=== PATIENT | male | born 1945 | race Caucasian/White ===

== ENCOUNTER 2016-07-12 17:59 | Emergency (ER) | payer MEDICARE, OTHER ==
[2016-07-12 19:58] VITALS: TEMP 99.8; BMI 30.4
[2016-07-12 20:36] LABS: CA OXALATE OCC; LEUKOCYTES/URINE NEG (NEGATIVE); NITRITE/URINE NEG (NEGATIVE); RBC/URINE 40-50 (0-2); URINE OCCULT BLOOD 3+ (NEG/TRACE)
[2016-07-12] MEDS ORDERED: KETOROLAC TROMETHAMINE 10 MG TAB PO ONE (22:32)
--- NOTE | 2016-07-12 22:35 | EDPRACDOC ---
- General Information Chief Complaint: Abdominal Pain Stated Complaint: RT FLANK PAIN HX OF KIDNEY STONES Time Seen by Provider: 07/12/16 22:24 Mode Of Arrival: Car Home Medications: Home Medications Aspirin [Juliet Aspirin] 325 mg PO .ONCE 05/02/16 Ciprofloxacin HCl [Cipro] 500 mg PO BID #14 tab 05/02/16 Fenofibrate [Lofibra] 160 mg PO HS 05/02/16 Multivitamin [One-A-Day Essential] 1 each PO DAILY 05/02/16 Ondansetron HCl [Zofran] 4 mg PO Q6H PRN #12 tab 05/02/16 Oxycodone HCl [Roxicodone] 5 - 10 mg PO Q4 PRN #20 tablet 05/02/16 Pradaxa On Hold See Xomments 150 mg PO .BID ON HOLD 05/02/16 Simvastatin [Zocor] 40 mg PO HS 05/02/16 Tamsulosin HCl [Flomax] 0.4 mg PO QAM #7 cap 05/02/16 Triamterene/Hydrochlorothiazid [Triamterene-Hctz 37.5-25 mg Tb] 0.5 each PO DAILY 05/02/16 Ciprofloxacin HCl [Cipro] 500 mg PO BID #20 tab 07/13/16 Ketorolac Tromethamine [Toradol] 10 mg PO Q6H PRN #20 tab 07/13/16 Oxycodone HCl/Acetaminophen [Percocet 5-325 mg Tablet] 1 each PO Q4 #20 tablet 07/13/16 Allergies/Adverse Reactions: Allergies Allergy/AdvReac Type Severity Reaction Status Date / Time No Known Allergies Allergy Verified 05/02/16 09:32 - History of Present Illness Onset: 4 HOURS HPI: PATIENT PRESENTS C/O RIGHT FLANK PAIN FOR 2 DAYS WITH DYSURIA. HEMATURIA PRESENT. USUALLY TAKES PRADAXA BUT STOPPED THIS AM. NO FEVER. NO N/V LAST MEAL AT 1PM. HX OF KIDNEY STONES AND SEES DR. CARRERA Pain Location: Reports: Flank (RIGHT) Pain Context: Reports: Spontaneous Pain Severity: Moderate Pain Quality: Reports: Sharp, Stabbing Pain Radiation: Reports: No Radiation Adult Abdominal History: Denies: Abdominal Surgery Modifying Factors: improves with: Nothing Associated Signs & Symptoms: Reports: Nausea, Hematuria Oral Intake: Normal Urinary Output: Normal ED Past Medical History - History Reviewed Yes Nurses notes reviewed and agree except as marked Travel Outside of [place] in the Last 3 Months?: No - Patient Medical History Cardiac History: Reports: Atrial Fibrillation, Hypertension, Hypercholesterolemia GI/ History: Reports: Gastroesophageal Reflux Psychological History: Denies: Depression Systemic History: Reports: Cancer (skin) Surgical History: Reports: Tonsillectomy/Adnoidectomy - Social Medical History Smoking Status: Former smoker ETOH: None Substance Abuse: None Lives With: Family Lives In: Home EDM Review of Systems - Review of Systems ROS Negative Except as Marked: Yes All systems reviewed and were negative except as marked Constitutional: No Symptoms Reported. negative: Fever, Chills, Weakness, Fatigue, Loss of Appetite Eyes: No Symptoms Reported. negative: Redness, Blurred Vision, Double Vision, Discharge, Pain, Light Sensitive, Photophobia Ears: No Symptoms Reported. negative: Pain, Hearing Loss, Drainage, Ear Pulling Throat: No Symptoms Reported. negative: Pain, Swelling Nose: No Symptoms Reported. negative: Congestion, Bleeding, Discharge, Injection, Swelling, Deformity, Ecchymosis, Tender, Abrasion, Laceration Mouth: No Symptoms Reported. negative: Pain, Drooling Respiratory: No Symptoms Reported. negative: Cough, Brassy Cough, Barky Cough, Shortness of Breath, Wheezing, Hemoptysis Cardiovascular: No Symptoms Reported. negative: Chest Pain, Palpitations, Syncope, Edema, Orthopnea, PND, Skin Mottling, Cyanosis Gastrointestinal: No Symptoms Reported. negative: Pain, Constipation, Nausea, Vomiting, Diarrhea, Melena, Formula Intolerance Genitourinary: Bleeding, Dysuria. negative: Discharge, Frequency, Hematuria, , Testicular Pain Neurological: No Symptoms Reported. negative: Headache, Dizziness, Seizure, Numbness, Weakness, Speech Difficulty, Gait Difficulty Musculoskeletal: Back. negative: Arm, Ankle, Chestwall, Elbow, Forearm, Femur, Foot, Hand, Hip, Knee, Leg, Neck, Pelvis, Ribs, Shoulder, Wrist Integumentary: No Symptoms Reported. negative: Itching, Rash, Bruising, Wound Allergic/Immunologic: No Symptoms Reported. negative: Hives, Itching Hematologic: No Symptoms Reported. negative: Lymphadenopathy, Easy Bruising, Easy Bleeding Endocrine: No Symptoms Reported. negative: Weight Gain, Weight Loss Psychiatric: No Symptoms Reported. negative: Anxiety, Depression, Hallucinations, Insomnia, Suicidal - Physical Exam Constitutional: Alert (Awake), Distress (MILD) Oriented to: Time, Person, Place Last recorded Vital Signs: Last Vital Signs Temp 99.8 F 07/12/16 19:52 Pulse 72 07/12/16 23:50 Resp 18 07/12/16 23:50 BP 126/83 07/12/16 23:50 Pulse Ox 94 07/12/16 23:50 Oxygen Pulse Oxygen Saturation 94 O2 Device Room Air Oxygen Flow Rate Fraction of Inspired Oxygen ( FIO2) - HEENT Head: Normal ( normocephalic) Eye Exam: Normal (PERRL, EOMI, Sclera white) Oropharynx: Normal (Pharynx:Moist without exudate,Gums-no swelling) Tympanic Membrane: Normal ENT EAC: Normal TMJ: Normal Nose: No Symptoms Reported (septum midline) Neck: Normal (FROM, trachea at midline) - Respiratory/Cardiovascular Respiratory: Normal - CTA (BBS clear to auscultation without adventitious sounds ) Cardiovascular: Normal (RRR without murmur, gallop or rub) - GI Auscultation: Normal (NABS) Palpation: Normal (Soft,No rebound or guarding, non distended) Tenderness: Non tender Bonilla's Sign: Negative - Musculoskeletal Back: Normal (Non-Tender) Extremities: Normal (Normal tone, Pulses 2+ No cyanosis or edema, FROM) - Integumentary Skin: Normal, Warm, Dry Lymphatics: Normal (no adenopathy) - Neurologic Memory Impaired: Normal Motor Function: Normal (Normal tone, Pulses 2+ No cyanosis or edema, FROM) Cranial Nerve: Normal (CN II-X11 intact sensation, strength 5/5) Cerebellar: Normal Mood Description: Normal Perception: Normal - Results 07/12/16 23:20 07/12/16 23:20 WBC 10.4 xk/uL (3.8-10.8) 07/12/16 23:20 RBC 4.74 xM/uL (4.70-6.10) 07/12/16 23:20 Hgb 14.3 g/dL (14.0-18.0) 07/12/16 23:20 Hct 42.3 % (42-52) 07/12/16 23:20 MCV 89 fL (80-94) 07/12/16 23:20 MCH 30.2 pg (27-32) 07/12/16 23:20 MCHC 33.9 g/dl (33-36) 07/12/16 23:20 RDW 13.4 % (11.5-14.5) 07/12/16 23:20 Plt Count 285 xk/uL (130-400) 07/12/16 23:20 MPV 9.0 fL (7.4-10.4) 07/12/16 23:20 Neut % (Auto) 72.0 % (45-76) 07/12/16 23:20 Lymph % (Auto) 18.1 % (17-44) 07/12/16 23:20 [place] % (Auto) 8.1 % (3-10) 07/12/16 23:20 Eos % (Auto) 1.0 % (0-5) 07/12/16 23:20 Baso % (Auto) 0.8 % (0-2) 07/12/16 23:20 Absolute Neuts (auto) 7.49 xk/uL (1.7-8.2) 07/12/16 23:20 Absolute Lymphs (auto) 1.87 xk/uL (0.65-4.75) 07/12/16 23:20 Sodium 143 mEq/L (137-146) 07/12/16 23:20 Potassium 4.2 mEq/L (3.5-5.1) 07/12/16 23:20 Chloride 102 mEq/L (98-107) 07/12/16 23:20 Carbon Dioxide 28 mMOL/L (22-33) 07/12/16 23:20 Anion Gap 17 mEq/L (8-16) H 07/12/16 23:20 BUN 14 MG/DL (9-20) 07/12/16 23:20 Creatinine 1.10 MG/DL (0.66-1.25) 07/12/16 23:20 Estimated GFR (MDRD) > 60 mL/min (>=60) 07/12/16 23:20 Glucose 111 MG/DL (70-99) H 07/12/16 23:20 Calculated Osmolality 277 MOs/Kg (270-290) 07/12/16 23:20 Calcium 9.6 MG/DL (8.4-10.2) 07/12/16 23:20 Total Bilirubin 1.5 MG/DL (0.2-1.3) H 07/12/16 23:20 AST 31 IU/L (17-59) 07/12/16 23:20 ALT 31 IU/L (21-72) 07/12/16 23:20 Alkaline Phosphatase 45 IU/L (50-160) L 07/12/16 23:20 Total Protein 7.9 G/DL (6.3-8.2) 07/12/16 23:20 Albumin 4.4 G/DL (3.5-5.0) 07/12/16 23:20 Urine Color Yellow 07/12/16 19:55 Urine Clarity Clear 07/12/16 19:55 Urine pH 5.0 (5.0-8.0) 07/12/16 19:55 Ur Specific [place] 1.010 (1.003-1.035) 07/12/16 19:55 Urine Protein Neg (NEG/TRACE) 07/12/16 19:55 Urine Glucose (UA) Neg (NEGATIVE) 07/12/16 19:55 Urine Ketones Neg (NEGATIVE) 07/12/16 19:55 Urine Occult Blood 3+ (NEG/TRACE) H 07/12/16 19:55 Urine Nitrite Neg (NEGATIVE) 07/12/16 19:55 Urine Bilirubin Neg (NEGATIVE) 07/12/16 19:55 Urine Urobilinogen <2.0 MG/DL (0-1) 07/12/16 19:55 Ur Leukocyte Esterase Neg (NEGATIVE) 07/12/16 19:55 Urine RBC 40-50 (0-2) H 07/12/16 19:55 Urine WBC 2-5 (0-2) H 07/12/16 19:55 Ur Epithelial Cells Occ 07/12/16 19:55 Calcium Oxalate Crystal Occ 07/12/16 19:55 Urine Bacteria Few (NEG/FEW) 07/12/16 19:55 Urine Mucus Occ (NEG/OCC) 07/12/16 19:55 Lab Results 07/12/16 07/12/16 07/12/16 23:20 23:20 19:55 WBC 10.4 RBC 4.74 Hgb 14.3 Hct 42.3 MCV 89 MCH 30.2 MCHC 33.9 RDW 13.4 Plt Count 285 MPV 9.0 Neut % (Auto) 72.0 Lymph % (Auto) 18.1 [place] % (Auto) 8.1 Eos % (Auto) 1.0 Baso % (Auto) 0.8 Absolute Neuts (auto) 7.49 Absolute Lymphs (auto) 1.87 Sodium 143 Potassium 4.2 Chloride 102 Carbon Dioxide 28 Anion Gap 17 H BUN 14 Creatinine 1.10 Estimated GFR (MDRD) > 60 Glucose 111 H Calculated Osmolality 277 Calcium 9.6 Total Bilirubin 1.5 H AST 31 ALT 31 Alkaline Phosphatase 45 L Total Protein 7.9 Albumin 4.4 Urine Color Yellow Urine Clarity Clear Urine pH 5.0 Ur Specific [place] 1.010 Urine Protein Neg Urine Glucose (UA) Neg Urine Ketones Neg Urine Occult Blood 3+ H Urine Nitrite Neg Urine Bilirubin Neg Urine Urobilinogen <2.0 Ur Leukocyte Esterase Neg Urine RBC 40-50 H Urine WBC 2-5 H Ur Epithelial Cells Occ Calcium Oxalate Crystal Occ Urine Bacteria Few Urine Mucus Occ Decision Time to Discharge: 01:26 - Departure Yes I personally saw and evaluated the patient. Disposition: Home Condition: Good Final Diagnosis: Ureteral calculus Instructions: Ureteral Stones (ED) Education/Counseling Given To: Patient Education/Counseling Given Regarding: Diagnosis, Treatment, Prognosis, Follow Up Prescriptions: Ciprofloxacin HCl [Cipro] 500 mg PO BID #20 tab Ketorolac Tromethamine [Toradol] 10 mg PO Q6H PRN #20 tab PRN Reason: Pain Oxycodone HCl/Acetaminophen [Percocet 5-325 mg Tablet] 1 each PO Q4 #20 tablet
[2016-07-12] MEDS ORDERED: NS 1,000 ML IV ONE (23:02)
[2016-07-12] MEDS ORDERED: KETOROLAC TROMETH 30 MG/ML VIAL IV ONE (23:02)
[2016-07-12 23:28] LABS: AUTOMATED BASOPHIL 0.8 % (0-2); AUTOMATED LYMPH 18.1 % (17-44); AUTOMATED MONOCYTE 8.1 % (3-10)
[2016-07-12 23:41] LABS: BLOOD UREA NITROGEN 14 MG/DL (9-20); CALCIUM 9.6 MG/DL (8.4-10.2); CALCULATED OSMOLALITY 277 MOs/Kg (270-290); CHLORIDE 102 mEq/L (98-107); GLUCOSE 111 MG/DL (70-99); SODIUM LEVEL 143 mEq/L (137-146); TOTAL PROTEIN 7.9 G/DL (6.3-8.2)
--- NOTE | 2016-07-13 01:12 | DIRPT ---
CLINICAL DATA: Acute onset of right flank pain and hematuria. Initial encounter. EXAM: CT ABDOMEN AND PELVIS WITHOUT CONTRAST TECHNIQUE: Multidetector CT imaging of the abdomen and pelvis was performed following the standard protocol without IV contrast. COMPARISON: CT of the abdomen pelvis performed 05/02/2016 FINDINGS: The visualized lung bases are clear. The liver and spleen are unremarkable in appearance. The gallbladder is within normal limits. The pancreas and adrenal glands are unremarkable. A 3 mm stone is noted along the mid right ureter, which may be causing intermittent obstruction. There is minimal prominence of the right-sided collecting system. A calcification along the anterior aspect of the right renal pelvis is stable from April and may reflect chronic pelvic wall calcification. A large left renal cyst is noted, measuring 9.1 cm in size. Nonspecific right-sided perinephric stranding is noted. No nonobstructing renal stones are identified within the renal calyces. No free fluid is identified. The small bowel is unremarkable in appearance. The stomach is within normal limits. No acute vascular abnormalities are seen. The appendix is normal in caliber, without evidence appendicitis. Mild diverticulosis is noted along the descending and sigmoid colon, without evidence of diverticulitis. The bladder is decompressed and not well assessed. The prostate is enlarged, measuring 5.8 cm in transverse dimension, with scattered calcification. No inguinal lymphadenopathy is seen. No acute osseous abnormalities are identified. Vacuum phenomenon is noted at L5-S1. IMPRESSION: 1. 3 mm stone along the mid right ureter, which may be causing intermittent obstruction. Minimal prominence of the right renal collecting system. 2. Large left renal cyst again noted. 3. Mild diverticulosis along the descending and sigmoid colon, without evidence of diverticulitis. 4. Enlarged prostate noted. Electronically Signed By: Breezy Diaz M.D. On: 07/13/2016 01:09
[2016-07-13 02:08] VITALS: BP 126/72; PULSE 76
== END 2016-07-13 02:05 | disposition home or self-care (01) ==
LOC: ED 17:59
DX: N20.1 Calculus of ureter (principal)
CPT/HCPCS: 36415; 74176; 80053; 81001; 85025; 96361; 96374; 99283; J1885